=== PATIENT | male | born 1950 | race Caucasian/White ===

== ENCOUNTER 2018-08-27 09:27 | Emergency (ER) | payer OTHER, BC ==
[2018-08-27 09:39] VITALS: TEMP 97.6; BMI 25.8
--- NOTE | 2018-08-27 09:52 | PDOC ---
History of Present Illness - General Chief Complaint: Pain Stated Complaint: left lower abdominal pain Time Seen by Provider: 08/27/18 09:34 History Source: Patient Exam Limitations: No Limitations - History of Present Illness Initial Comments: 67 yo M history prediabetes (on metformin) presents with abrupt onset LLQ abd pain upon awakening this morning. He states the pain was sharp, colicky, resolved somewhat now. No N/V/D, f/c. He had a normal BM this morning. No prior similar symptoms. Pain is currently mild, nonradiating. Past History - Past Medical History Allergies/Adverse Reactions: Allergies Allergy/AdvReac Type Severity Reaction Status Date / Time No Known Drug Allergies Allergy Unknown Verified 08/27/18 09:33 SEASONAL ALLERGIES Allergy Mild SNEEZING Uncoded 08/27/14 07:26 NKDA Allergy Uncoded 08/27/14 07:26 Home Medications: Ambulatory Orders Amlodipine Besylate [Norvasc -] 5 mg PO DAILY 08/25/14 Aspirin [ASA -] 81 mg PO DAILY 08/25/14 Cholecalciferol (Vitamin D3) [Vitamin D] 2,000 unit PO DAILY 08/25/14 Fexofenadine HCl [Lorena Allergy] 60 mg PO PRN PRN 08/25/14 Iron 18 mg PO DAILY 08/25/14 Atorvastatin Ca [Lipitor -] 10 mg PO Q2D 11/12/14 Metformin HCl [Glucophage] 500 mg PO DAILY 08/27/18 Anemia: No Asthma: No Cancer: No Cardiac Disorders: No CVA: No COPD: No CHF: No Dementia: No Diabetes: Yes (DIET CONTROLLED) GI Disorders: Yes (COLONIC POLYPS) Disorders: No HTN: Yes Hypercholesterolemia: Yes Liver Disease: No Seizures: No Thyroid Disease: No - Surgical History Abdominal Surgery: No Appendectomy: No Cardiac Surgery: No Cholecystectomy: No GI Surgery: Yes (RECTAL FISSURE) Lung Surgery: No Neurologic Surgery: No Orthopedic Surgery: Yes (RIGHT CARPAL TUNNEL) - Immunization History Td Vaccination: No - Suicide/Smoking/Psychosocial Hx Smoking Status: No Smoking History: Never smoked Years of Tobacco Use: 0 Have you smoked in the past 12 months: No Number of Cigarettes Smoked Daily: 0 Hx Alcohol Use: Yes (RARE) Drug/Substance Use Hx: No Substance Use Type: None, Marijuana Hx Substance Use Treatment: No Review of Systems - Review of Systems Able to Perform ROS?: Yes Comments:: GENERAL/CONSTITUTIONAL: No fever or chills. No weakness. HEAD, EYES, EARS, NOSE AND THROAT: No change in vision. No ear pain or discharge. No sore throat. CARDIOVASCULAR: No chest pain or shortness of breath. RESPIRATORY: No cough, wheezing, or hemoptysis. GASTROINTESTINAL: No nausea, vomiting, diarrhea or constipation. +Abd pain. GENITOURINARY: No dysuria, frequency, or change in urination. MUSCULOSKELETAL: No joint or muscle swelling or pain. No neck or back pain. SKIN: No rash NEUROLOGIC: No headache, vertigo, loss of consciousness, or change in strength/ sensation. ENDOCRINE: No increased thirst. No abnormal weight change. HEMATOLOGIC/LYMPHATIC: No anemia, easy bleeding, or history of blood clots. ALLERGIC/IMMUNOLOGIC: No hives or skin allergy. *Physical Exam - Vital Signs Last Vital Signs Temp Pulse Resp BP Pulse Ox 97.6 F 71 18 135/89 100 08/27/18 09:32 08/27/18 09:32 08/27/18 09:32 08/27/18 09:32 08/27/18 09:32 - Physical Exam Comments: GENERAL: Awake, alert, and fully oriented, in no acute distress HEAD: No signs of trauma EYES: PERRLA, EOMI, sclera anicteric, conjunctiva clear ENT: Auricles normal inspection, hearing grossly normal, nares patent, oropharynx clear without exudates. Moist mucosa NECK: Normal ROM, supple, no lymphadenopathy, JVD, or masses LUNGS: Breath sounds equal, clear to auscultation bilaterally. No wheezes, and no crackles HEART: Regular rate and rhythm, normal S1 and S2, no murmurs, rubs or gallops ABDOMEN: Soft, +LLQ tenderness, normoactive bowel sounds. +Guarding, no rebound. No masses EXTREMITIES: Normal range of motion, no edema. No clubbing or cyanosis. No cords, erythema, or tenderness NEUROLOGICAL: Cranial nerves II through XII grossly intact. Normal speech, normal gait SKIN: Warm, Dry, normal turgor, no rashes or lesions noted. ED Treatment Course - LABORATORY CBC & Chemistry Diagram: 08/27/18 10:18 08/27/18 10:18 Medical Decision Making - Medical Decision Making 08/27/18 09:52 Abrupt onset LLQ pain since this AM, will obtain CT r/o diverticulitis. 08/27/18 14:14 CT reviewed, c/w colitis. Will treat with PO abx. Stable for DC home. *DC/Admit/Observation/Transfer Diagnosis at time of Disposition: Colitis - Discharge Dispostion Disposition: HOME Condition at time of disposition: Stable Decision to Admit order: No - Referrals Referrals: Madelyn Christian MD [Primary Care Provider] - - Patient Instructions - Post Discharge Activity
[2018-08-27 10:22] LABS: BASO % 0.3 % (0-2.0); EOS % 0.9 % (0-4.5); HEMATOCRIT 45.3 % (35.4-49); HEMOGLOBIN 14.8 GM/dl (11.7-16.9); LYMPH % 17.1 % (8-40); MCH 28.1 pg (25.7-33.7); MCHC 32.7 g/dl (32.0-35.9); MEAN CELL VOLUME 86.1 fl (80-96); MEAN PLT VOLUME 8.1 fl (7.5-11.1); MONO % 3.5 % (3.8-10.2); NEUT % 78.2 % (42.8-82.8); PLATELET COUNT 308 K/MM3 (134-434); RBC 5.26 M/mm3 (4.00-5.60); WHITE BLOOD COUNT 7.5 K/mm3 (4.0-10.8)
[2018-08-27 10:53] LABS: ALBUMIN 4.7 g/dl (3.5-5.0); ALK PHOS 56 U/L (32-92); ANION GAP 10 MMOL/L (8-16); BILIRUBIN,TOTAL 1.2 mg/dl (0.2-1.0); BLOOD UREA NITROGEN 13 mg/dl (7-18); CALCIUM 9.9 mg/dl (8.4-10.2); CHLORIDE 100 mmol/L (98-107); CO2 26 mmol/L (22-28); CREATININE 0.9 mg/dl (0.6-1.3); GLUCOSE,RANDOM 329 mg/dl (74-106); POTASSIUM 4.5 mmol/L (3.5-5.1); SGOT/AST 22 U/L (10-42); SGPT/ALT 17 U/L (10-40); SODIUM 136 mmol/L (136-145); TOT PROT 7.7 g/dl (6.4-8.3)
[2018-08-27 10:58] LABS: URINE APPEARANCE Clear; URINE BILIRUBIN Negative (NEGATIVE); URINE COLOR Yellow; URINE KETONE 2+ (NEGATIVE); URINE LEUK ESTERASE Negative (NEGATIVE); URINE NITRITE Negative (NEGATIVE); URINE PROTEIN Negative (NEGATIVE); URINE UROBILINOGEN 0.2 (0.2-1.0)
[2018-08-27 11:04] LABS: URINE GLUCOSE (UA) 3+ (NEGATIVE)
[2018-08-27] MEDS ORDERED: SODIUM CHLORIDE 1,000 ML IV STA (11:54)
[2018-08-27 12:09] LABS: URINE RBC 0-2 /hpf (0-3); URINE WBC 0-2 (0-2)
[2018-08-27] MEDS ORDERED: metroNIDAZOLE 250 MG TABLET PO ONE (14:13)
[2018-08-27] MEDS ORDERED: levoFLOXacin 750 MG TABLET PO ONE (14:13)
[2018-08-27] MEDS ORDERED: metroNIDAZOLE 250 MG TABLET ONE (14:17)
[2018-08-27 14:32] VITALS: BP 140/94; PULSE 81
== END 2018-08-27 14:28 | disposition home or self-care (01) ==
LOC: FER 09:27
PROC: 3E0337Z Introduction of Electrolytic and Water Balance Substance into Peripheral Vein, Percutaneous Approach (ICD-10-PCS; principal; 2018-08-27)
DX: K52.9 Noninfective gastroenteritis and colitis, unspecified (principal); I10 Essential (primary) hypertension; E78.00 Pure hypercholesterolemia, unspecified; E11.9 Type 2 diabetes mellitus without complications
CPT/HCPCS: 36415; 74177-TC; 80053; 81003; 81015; 85025; 99283-25; J7030

== ENCOUNTER 2019-10-21 08:14 | Day surgery (SDC) | payer OTHER ==
[2019-10-17 10:57] VITALS: BMI 27.7
[2019-10-21] MEDS ORDERED: PROPOFOL 20 ML ONE ×4 (08:34)
[2019-10-21 11:06] VITALS: TEMP 98
[2019-10-21 11:29] VITALS: BP 110/72; PULSE 79
== END 2019-10-21 10:00 | disposition home or self-care (01) ==
LOC: FASU-ENDO 08:14
PROVIDERS: ATTEND Internal Medicine Gastroenterology
PROC: 0DJD8ZZ Inspection of Lower Intestinal Tract, Via Natural or Artificial Opening Endoscopic (ICD-10-PCS; principal; 2019-10-21 09:07)
DX: Z12.11 Encounter for screening for malignant neoplasm of colon (principal); Z80.0 Family history of malignant neoplasm of digestive organs
CPT/HCPCS: 82962